=== PATIENT | male | born 1995 | race Caucasian/White ===

== ENCOUNTER 2020-03-10 10:22 | Outpatient (CLI) | payer OTHER | END 2020-03-10 10:23 | disposition home or self-care (01) | LOC: COV 10:22 | PROVIDERS: ATTEND Family Medicine | DX: R50.9 Fever, unspecified (principal); M79.10 Myalgia, unspecified site; R53.83 Other fatigue; R11.0 Nausea; Z20.822 Contact with and (suspected) exposure to COVID-19 ==